=== PATIENT | male | born 1930 | race Caucasian/White ===

== ENCOUNTER 2016-12-21 08:02 | Day surgery (SDC) | payer MEDICARE, BC ==
[2016-12-16 14:48] VITALS: BMI 31.4
[~2016-12-21 08:02] MED LIST: AMPICILLIN 1,000 MG in SODIUM CHLORIDE 0.9% 50 ML IVPB ONE; DEXAMETHASONE SOD PHOSPHATE 10 MG/ML 1 ML VIAL IV ONE; GENTAMICIN 140 MG in SODIUM CHLORIDE 0.9% 100 ML IVPB ONE; HYDROmorphone 1 MG/ML 1 ML SYRINGE IVP PRN; LIDOCAINE 1% 20 ML VIAL (10MG/ML) FOR IV START INTRADERMA PRN; MIDAZOLAM 2 MG/2 ML VIAL IV PRN; ONDANSETRON 4 MG/2 ML VIAL IVP ONE; SCOPOLAMINE 1.5MG/72HR PATCH TRANSDERM ONE
[2016-12-21] MEDS ORDERED: LIDOCAINE 1% 20 ML VIAL (10MG/ML) FOR IV START INTRADERMA ONE (08:55)
[2016-12-21] MEDS: LACTATED RINGERS 1,000 ML IV SCH (08:55)
[2016-12-21] MEDS ORDERED: LIDOCAINE 1% INJ 10MG/ML (20 ML MDV) ONE (09:50)
[2016-12-21] MEDS ORDERED: NEOSTIGMINE 1 MG/ML 10 ML VIAL ONE (09:50)
[2016-12-21] MEDS ORDERED: PROPOFOL 10 MG/ML 20 ML VIAL IV ONE (09:50)
[2016-12-21] MEDS ORDERED: HYDROmorphone (PF) 1 MG/ML ONE (09:50)
[2016-12-21] MEDS ORDERED: ROCURONIUM BROMIDE 10 MG/ML 10 ML VIAL IV ONE (09:50)
[2016-12-21] MEDS ORDERED: GLYCOPYRROLATE 0.2 MG/ML 2 ML VIAL ONE (09:50)
[2016-12-21] MEDS ORDERED: MIDAZOLAM 2 MG/2 ML VIAL ONE (09:50)
[2016-12-21] MEDS ORDERED: fentaNYL (PF) 50 MCG/ML 2 ML AMP ONE (09:50)
[2016-12-21] MEDS ORDERED: SUCCINYLCHOLINE CHLORIDE 100 MG/5 ML SYR IV ONE (09:50)
[2016-12-21] MEDS ORDERED: GENTAMICIN 80 MG in SODIUM CHLORIDE 0.9% 250 ML IRRIGATION ONE (10:20)
[2016-12-21] MEDS ORDERED: MORPHINE SULFATE 2 MG/ML SYRINGE IV PRN (11:20)
[2016-12-21] MEDS ORDERED: HYDROcodone/APAP 5-325MG 1 EACH TAB PO PRN (11:20)
[2016-12-21] MEDS ORDERED: ONDANSETRON 4 MG/2 ML VIAL IVP PRN (11:22)
--- NOTE | 2016-12-21 11:30 | P.OP ---
Date of Procedure: 12/21/16 Preoperative Diagnosis: Post radical prostatectomy stress urinary incontinence Postoperative Diagnosis: Post radical prostatectomy stress urinary incontinence Procedure(s) Performed: Advance male urinary sling, cystoscopy Anesthesia: SHAYNE Surgeon: Raphael Tubbs Chief Of Party #1: Jimmy Romero Estimated Blood Loss (ml): 50 Pathology: none sent Condition: stable Indications for Procedure: The patient is an 86-year-old gentleman with prostate cancer on hormonal therapy is worsening stress urinary incontinence. His urologist in [facility] in the past as tried periurethral injections 3 without resolution. He underwent cystoscopy and urodynamics identifying decent muscle control with reasonable coaptation and I thought an advance urinary sling may be of benefit. He comes for this procedure. Description of Procedure: Patient is brought to the operating suite and given a successful general endotracheal anesthesia. He's placed lithotomy position with a sterile prep and drape. He received oral and IV preoperative antibiotics. A midline perineal incision from the base of the scrotum 2 chest above the rectum is performed. The subcutaneous tissue was identified and opened. Identify the bulbospongiosus muscle. Its opened in the midline. The bulbospongiosus was identified. I dissect lateral to it bilaterally. I then detached the bulbospongiosus him from the perineal body. I make 2 incisions in the inguinal crease just below the adductor longus tendon. I then passed the advance introducers through the obturator foramen around the issue pubic ramus underneath the pubis into the space between the bulbous spongiosum muscle and the urethra. This bilaterally. I attached the graft to the introducers and pull it back through the obturator foramen. Graft then lay nicely on the posterior urethra. It is secured to the posterior urethra with 4-0 Vicryl. I then remove the Good catheter and introduce a cystoscope into the bulbar urethra and pull the graft tight watching the graft coapted. I then excised the redundant redundant sheathing on the graft. I tunneled the graft edges into the scrotum. The inguinal incisions are closed with 4-0 Monocryl. The bulbospongiosus muscle is does with 4-0 Vicryl. The subcutaneous tissue with 4- 0 chromic. The skin with 4-0 Monocryl. On had previously been irrigated with antibiotic irrigation. A 14-[place] Good catheters were introduced into the bladder with clear urine return. Its awake and returned recovery room good condition. Blood loss is less than 50 mL. He'll be observed in the hospital overnight.
[2016-12-21] MEDS ORDERED: D5-0.45% NACL WITH KCL 20MEQ/L 1,000 ML IV SCH (12:30)
[2016-12-21 15:09] LABS: Appearance,Urine Clear (Clear); Bilirubin,Urine Negative (Negative); Glucose,Urine (UA) Negative (Negative); Ketones,Urine Negative (Negative); Leukocyte Esterase,Urine Negative (Negative); Nitrite,Urine Negative (Negative); PH, Urine 6.5 (5.0-8.0); Protein,Urine Negative (Negative); Specific Gravity,Urine 1.001 (1.001-1.035); UA Billing (MACRO vs. MICRO) CHEM; Urobilinogen,Urine <2.0 mg/dL (<2.0)
[2016-12-21] MEDS: AMOXICILLIN 500 MG CAP PO SCH ×2 (16:29→23:29)
[2016-12-22 00:40] VITALS: BP 132/70; PULSE 92; RESP 18; TEMP 97.3
[2016-12-22] MEDS: LACTATED RINGERS 1,000 ML IV SCH (03:57)
--- NOTE | 2016-12-22 06:42 | P.DS ---
Providers Attending physician: Raphael Tubbs Primary care physician: Nic Garcia [facility] Course: The patient was admitted to the hospital for a male advance urinary sling for stress incontinence. This was done without difficulty. He did well overnight. Vital signs are stable. He feels reasonably well. He'll be discharged home this morning with an indwelling catheter meet seen in the office tomorrow for catheter removal. Postoperative instructions been given. He is given a prescription of [place]. He will resume his home medications. Patient Condition at Discharge: Good Plan - Discharge Summary New Discharge Prescriptions: HYDROcodone/APAP 5-325MG [Montrose 5-325] 1 tab PO Q4HR PRN #20 tab PRN Reason: Pain Discharge Medication List Aspirin 325 mg PO DAILY 12/16/16 [History] Calcium Carbonate [Calcium] 600 mg PO DAILY 12/16/16 [History] Cholecalciferol [Vitamin D3] 2,000 unit PO DAILY 12/16/16 [History] Diethylstibestrol 1 mg PO BID 12/16/16 [History] Diltiazem HCl [Diltiazem 24Hr ER] 180 mg PO Q24H 12/16/16 [History] Omeprazole 20 mg PO DAILY 12/16/16 [History] Stool Softner 1 tab PO DAILY 12/16/16 [History] Amoxicillin 500 mg PO Q8H 12/21/16 [History] HYDROcodone/APAP 5-325MG [Montrose 5-325] 1 tab PO Q4HR PRN #20 tab 12/22/16 [Rx] Follow up Appointment(s)/Referral(s): Raphael Tubbs MD [STAFF PHYSICIAN] - 12/23/16 Activity/Diet/Wound Care/Special Instructions: Home with Good
[2016-12-22] MEDS ORDERED: PANTOPRAZOLE 40 MG TABLET PO SCH (07:30)
[2016-12-22] MEDS: AMOXICILLIN 500 MG CAP PO SCH (07:38)
[2016-12-22] MEDS ORDERED: DILTIAZEM CD 180 MG CAP.ER.24H PO SCH (09:00)
== END 2016-12-22 09:00 | disposition home or self-care (01) ==
LOC: OR 08:02 → 4MS4W 11:23 → OR 12-22 09:00
PROVIDERS: ATTEND Urology
DX: N39.3 Stress incontinence (female) (male) (principal); Z90.79 Acquired absence of other genital organ(s); C61 Malignant neoplasm of prostate; I49.9 Cardiac arrhythmia, unspecified; Z79.82 Long term (current) use of aspirin; Z79.899 Other long term (current) drug therapy
CPT/HCPCS: 53440; 81003; C1713; J2250; J1580 ×2; J1100; J2710; J2405; J2001; J3010; J0290; J1170; J0330; J2704

== ENCOUNTER → 2018-12-07 | Outpatient (CLI) | payer MEDICARE, BC ==
--- NOTE | 2018-12-09 14:03 | PE ---
Nuclear medicine PET/CT HISTORY: Solitary pulmonary nodule, initial Patient received 13.1 mCi F-18 FDG intravenously in delayed scanning was performed from skull base to the mid thighs. Localization and attenuation correction CT scan was performed. No comparisons Head and neck: There is no evident cervical, mediastinal, axillary, or hilar adenopathy. No suspiciou s hypermetabolic uptake. Posterior costophrenic angle on the right shows a soft tissue mass measuring 2 cm with some calcification at its inferior margin. There is associated hypermetabolic uptake, SUV is 3.8. Additional soft tissue nodules present on axial image 123 which is noncalcified and shows smo oth margins. Within the left lower lobe laterally on axial image 126 there is a soft tissue smoothly marginated subpleural mass measuring 16 mm., SUV only 2.3. Smooth margin soft tissue mass in the axia l image #116 in the left upper lobe measures approximately 1 cm. Right upper lobe nodule posteriorly on axial image 85 measures approximately 9 to 10 mm. 2 additional smaller nodules are immediately adj acent. Left upper lobe on axial image 88 shows a similar smoothly marginated soft tissue mass, these nodules do not show associated hypermetabolic uptake. Axial image 113 shows a soft tissue mass which is subcentimeter in size. There are coronary artery calcifications present. Aortic root measures 4.3 cm, ascending aorta 4.6 cm , there is atheromatous change, proximal descending aorta measures 3.7 cm. No pleural or pericardial effusion. ABDOMEN: No evident liver mass. There is some hypermetabolic uptake identified within the right colon which may be physiologic. No retroperitoneal adenopathy. Within the left hemipelvis there is a soft tissue mass present, soft tissue lesion measures approximately 4.3 x 2 cm and shows associated hyperm etabolic uptake, SUV 8.7. Stopped changes are also present within the pelvis. Osseous structures are within normal limits. There is degenerative disc changes in the lower lumbar s pine, there is a spinal curvature. No suspicious hypermetabolic uptake. IMPRESSION: Indeterminate lung nodules, soft tissue mass within the pelvis, consider metastatic disea se. Aortic aneurysm.
== END ==
LOC: RADPETMAIN 16:27
PROVIDERS: ATTEND Family Medicine
DX: R91.8 Other nonspecific abnormal finding of lung field (principal); R19.09 Other intra-abdominal and pelvic swelling, mass and lump
CPT/HCPCS: 78815; A9552

== ENCOUNTER → 2018-12-14 | Outpatient (CLI) | payer MEDICARE, BC ==
--- NOTE | 2018-12-14 11:45 | FL ---
ESOPHOGRAM. HISTORY: Dysphagia Esophagram was performed per the air contrast technique. The patient swallowed barium and effervesce nt crystals without difficulty or delay. Examination is immediately terminated given moderate aspiration of thick liquid barium. IMPRESSION: Aspiration.
--- NOTE | 2018-12-14 11:48 | FL ---
Modified barium swallow. HISTORY: Dysphagia. Modified barium swallow was performed with the department of speech pathology. The patient was prese nted with various consistencies of barium. There is no evidence for aspiration. Mild transient penetration identified. Full report is to follow from the department of speech pathology. Impression: Mild transient penetration is noted.
== END ==
LOC: RADFLWHC 10:00
PROVIDERS: ATTEND Family Medicine
DX: R13.10 Dysphagia, unspecified (principal); R91.8 Other nonspecific abnormal finding of lung field
CPT/HCPCS: 74220; 74230

== ENCOUNTER 2021-02-17 08:34 | Day surgery (SDC) | payer MEDICARE, BC, OTHER ==
[2021-02-12 10:59] VITALS: BMI 31.7
--- NOTE | 2021-02-16 19:36 | P.GSHP ---
History of Present Illness H&P Date: 02/16/21 89 o male with a history of progressive prostate cancer. He has had a radical prostatectomy post op radiation, hormone therapy, chemotherapy. He has katina that has failed medical management, male sling, medication. We discussed treatment options. I dont think he could handle a gu sphincter. We discussed urethral bland vs a sp tube. The paitents incontinence is severe with alot of chemical burn of the genitals. After deliberation I am afraid that a urethral bland would be challenging with periurethral abscess and changing difficulties. We discussed sp tube as an aide but not a cure as he may still leak through his frozen non functional sphincter. He was to try the sp tube He cmes for this pr ocedure. - Constitutional Constitutional: Denies chills, Denies fever - EENT Eyes: denies blurred vision, denies pain Ears, nose, mouth and throat: Denies headache, Denies sore throat - Cardiovascular Cardiovascular: Denies chest pain, Denies shortness of breath - Respiratory Respiratory: Denies cough, Denies 7 - Gastrointestinal Gastrointestinal: Denies abdominal pain, Denies diarrhea, Denies nausea, Denies vomiting - Genitourinary (Female) Genitourinary: Denies dysuria, Denies hematuria - Genitourinary (Male) Genitourinary: Denies dysuria, Denies hematuria - Musculoskeletal Musculoskeletal: Denies myalgias - Integumentary Integumentary: Denies pruritus, Denies rash - Neurological Neurological: Denies numbness, Denies weakness - Psychiatric Psychiatric: Denies anxiety, Denies depression - Endocrine Endocrine: Denies fatigue, Denies weight change Past Medical History Past Medical History: Cancer, Hypertension, Prostate Disorder Additional Past Medical History / Comment(s): hx ulcer, urinary leakage, constipation, hx prostate cancer History of Any Multi-Drug Resistant Organisms: None Reported Past Surgical History: Orthopedic Surgery, Prostate Surgery Additional Past Surgical History / Comment(s): little finger surgery left hand- trauma age 14, [place] cataracts, Past Anesthesia/Blood Transfusion Reactions: No Reported Reaction Smoking Status: Never smoker - Past Family History Mother Family Medical History: No Reported History Medications and Allergies Home Medications Medication Instructions Recorded Confirmed Type Aspirin 325 mg PO DAILY 12/16/16 02/12/21 History Calcium Carbonate [Calcium] 600 mg PO DAILY 12/16/16 02/12/21 History Cholecalciferol [Vitamin D3] 2,000 unit PO DAILY 12/16/16 02/12/21 History Diltiazem HCl [Diltiazem 24Hr ER] 180 mg PO Q24H 12/16/16 02/12/21 History Omeprazole 20 mg PO DAILY 12/16/16 02/12/21 History Stool Softner 1 tab PO DAILY 12/16/16 02/12/21 History Allergies Allergy/AdvReac Type Severity Reaction Status Date / Time No Known Allergies Allergy Verified 02/12/21 10:49 Surgical - Exam - General well developed, well nourished, no distress - Eyes PERRL - ENT decreased hearing - Neck trachea midline - Respiratory normal expansion, normal respiratory effort - Cardiovascular Rhythm: regular - Abdomen Abdomen: soft, non tender - Genitourinary marked genital irritation with scarred foreskin - Neurologic normal coordination, normal sensation - Musculoskeletal normal posture - Psychiatric oriented to time, oriented to person, oriented to place, speech is normal, memory intact Assessment and Plan Assessment: Impression; katina post radical prostatectomy and radiation therapy Plan: placement of a supra pubic tube
[~2021-02-17 08:34] MED LIST changes: -AMPICILLIN 1,000 MG in SODIUM CHLORIDE 0.9% 50 ML IVPB ONE; -DEXAMETHASONE SOD PHOSPHATE 10 MG/ML 1 ML VIAL IV ONE; +DEXAMETHASONE SOD PHOSPHATE 4 MG/ML 1 ML VIAL IV ONE; -GENTAMICIN 140 MG in SODIUM CHLORIDE 0.9% 100 ML IVPB ONE; -HYDROmorphone 1 MG/ML 1 ML SYRINGE IVP PRN; +LACTATED RINGERS 1,000 ML IV SCH; +LIDOCAINE 1% (10MG/ML) FOR IV START INTRADERMA PRN; -LIDOCAINE 1% 20 ML VIAL (10MG/ML) FOR IV START INTRADERMA PRN; -MIDAZOLAM 2 MG/2 ML VIAL IV PRN; -SCOPOLAMINE 1.5MG/72HR PATCH TRANSDERM ONE
[2021-02-17] MEDS ORDERED: LIDOCAINE 1% INJ 10MG/ML (20 ML MDV) ONE (09:39)
[2021-02-17] MEDS ORDERED: METOPROLOL TARTRATE 5 MG/5 ML VIAL IVP ONE (09:39)
[2021-02-17] MEDS ORDERED: PROPOFOL 10 MG/ML 20 ML VIAL IV ONE (09:39)
[2021-02-17] MEDS ORDERED: ROCURONIUM 10 MG/ML (5 ML VIAL) IV ONE (09:39)
[2021-02-17] MEDS ORDERED: SUCCINYLCHOLINE CHLORIDE 100 MG/5 ML SYR IV ONE (09:39)
[2021-02-17] MEDS ORDERED: fentaNYL (PF) 50 MCG/ML 2 ML AMP ONE (09:39)
--- NOTE | 2021-02-17 11:17 | P.OP ---
Date of Procedure: 02/17/21 Preoperative Diagnosis: Chronic urinary incontinence post radical prostatectomy and radiation therapy for prostate cancer Postoperative Diagnosis: Same Procedure(s) Performed: Cystoscopy, urethral dilation, open cystostomy with a smooth of 18-[place] suprap ubic tube Anesthesia: SHAYNE Surgeon: Raphael Tubbs Estimated Blood Loss (ml): 10 Pathology: none sent Condition: stable Disposition: PACU Indications for Procedure: The patient is 89. He had a radical prostatectomy years ago on [place]. He subsequently had radiation therapy post treatment for recurrence of his prostate cancer. 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 He failed an advance sling a. He is not a candidate for a sphincter. I'm afraid of place in a urethral catheter due to scarring of the urethra and severe phimosis and urine burn. I would think that he would develop a periurethral fistula and/or periurethral abscess. He comes for a suprapubic tube. He understands it may not be adequate. Description of Procedure: The patient is brought to the operating suite. He is given a general anesthesia. He's placed lithotomy position with sterile prep and drape. The severe phimosis and urine burn is inspected. I cannot find the tip of the penis. I passed the scope into the phimotic penis and identify what appears to be the urethral meatus however it is very scarred. I attempted to pass a scope through this but failed. Attempt passed an 035 wire through this is also fails. I will thus try to do a suprapubic cystostomy without filling the bladder Midline infrapubic to suprapubic incision is made. I dissect down and open up the scarred rectus fascia. The prevesical space was developed. The bladder is difficult to palpate as it is relatively empty. There is no prostate palpable. I then reinspected the urethra. I attempted to pass a 3 and then 4-[place] filiform and eventually make it into the bladder. I then dilate the urethra from [id number] with followers up. I'm able to then with difficulty pass a 12 coud-tip catheter through the scarred urethra into the bladder. I then filled the bladder up with sterile water. I can now feel the bladder suprapubically. A cystotomy is made and an 18-[place] Good catheters placed into the bladder irrigated freely. I do a pursestring stitch around it with 3-0 chromic a. It irrigates freely. I then closed the rectus fascia with a running 0 PDS. Ring the Godo out through the lower incision. I secured the Good the skin with an [address] a drain through a separate stab incision and secured with an 0 silk a. I then closed the skin with a running 4-0 Monocryl. The patient awake and returned recovery in good condition. Blood loss was approximately 10 mL. He'll be discharged home later upon recovery. He'll follow-up in the office next week for drain removal. He'll have a catheter change in 1 month.
[2021-02-17 11:22] VITALS: TEMP 97
[2021-02-17] MEDS ORDERED: HYDROmorphone 0.5 MG/0.5 ML SYRINGE IVP ONE ×2 (11:44→12:05)
[2021-02-17] MEDS ORDERED: LACTATED RINGERS 1,000 ML IV ONE (12:16)
[2021-02-17 13:08] VITALS: RESP 20
[2021-02-17 13:13] VITALS: BP 181/69; PULSE 71
== END 2021-02-17 14:10 | disposition home or self-care (01) ==
LOC: OR 08:34
PROVIDERS: ATTEND Urology
DX: R32 Unspecified urinary incontinence (principal); Z90.79 Acquired absence of other genital organ(s); I10 Essential (primary) hypertension; K59.00 Constipation, unspecified; Z85.46 Personal history of malignant neoplasm of prostate; Z79.899 Other long term (current) drug therapy; Z79.82 Long term (current) use of aspirin; K21.9 Gastro-esophageal reflux disease without esophagitis
CPT/HCPCS: 51040; C1769; C2627; J1100; J0690; J2405; J2001; J3010; J0330; J2704; J1170